=== PATIENT | male | born 1965 | race Caucasian/White ===

== ENCOUNTER 2016-08-24 16:27 | Emergency (ER) | payer SELFPAY ==
[2016-08-24 17:04] LABS: BASOPHILS 0.4 % (0.0-2.0); HEMOGLOBIN 15.1 g/dL (13.5-17.5); IMMATURE GRANULOCYTES 0.3 % (0-5); LYMPHOCYTES 33.9 % (15-50); MCH 31.2 pg (26.0-34.0); MCHC 33.6 g/dL (31.0-37.0); MONOCYTES 8.8 % (2-11); NEUTROPHILS 52.6 % (40-80); PLATELET COUNT 258 10x3/uL (130-400); RBC 4.84 10x6/uL (4.20-6.10); WBC 10.8 10x3/uL (4.8-10.8)
[2016-08-24 17:29] LABS: ALBUMIN 3.5 g/dL (3.4-5.0); ANION GAP 17.2 mmol/L (8-16); BILIRUBIN - TOTAL 0.24 mg/dL (0.2-1.3); CALCIUM 9.1 mg/dL (8.5-10.1); CARBON DIOXIDE 20.8 mmol/L (21.0-32.0); CREATININE - SERUM 1.1 mg/dL (0.6-1.3); PROTEIN - SERUM 7.4 g/dL (6.4-8.2)
== END 2016-08-24 17:53 | disposition left against medical advice (07) ==
LOC: D.ER 16:27
PROVIDERS: Family Medicine
DX: R10.9 Unspecified abdominal pain (principal)

== ENCOUNTER 2019-09-16 07:47 | Inpatient (IN) | payer OTHER ==
[~2019-09-16] VITALS: Ht 177.8 cm; Wt 115.9 kg
[2019-09-16 08:24] LABS: BASOPHILS 0.2 % (0-2); EOSINOPHILS 1.3 % (0-7); HEMATOCRIT 45.4 % (42.0-54.0); HEMOGLOBIN 14.8 g/dL (13.5-17.5); IMMATURE GRANULOCYTES 0.2 % (0-5); LYMPHOCYTES 18.4 % (15-50); MCH 30.7 pg (26.0-34.0); MCHC 32.6 g/dL (31.0-37.0); MCV 94.2 fL (80.0-100.0); MEAN PLATELET VOLUME 9.6 fL (7.4-10.4); MONOCYTES 7.7 % (2-11); NEUTROPHILS 72.2 % (40-80); PLATELET COUNT 252 10x3/uL (130-400); RBC 4.82 10x6/uL (4.20-6.10); RDW 13.4 % (11.5-14.5); WBC 12.6 10x3/uL (4.8-10.8)
[2019-09-16 08:41] LABS: CALC OSMOLALITY 282 mosm/kg (275-300); CALCIUM 8.2 mg/dL (8.5-10.1); CARBON DIOXIDE 23.5 mmol/L (21.0-32.0); CHLORIDE - SERUM 104 mmol/L (98-107); CREATININE - SERUM 0.9 mg/dL (0.6-1.3); GLUCOSE 104 mg/dL (74-106); POTASSIUM - SERUM 4.2 mmol/L (3.5-5.1); SODIUM 141 mmol/L (136-145); UREA NITROGEN 17 mg/dL (7-18); eGFR NON AFRICAN AMERICAN > 90 mL/min (90-120)
[2019-09-16 08:47] LABS: ALBUMIN 3.6 g/dL (3.4-5.0); ALKALINE PHOSPHATASE 79 U/L (30-120); ALT (SGPT) 21 U/L (10-68); PROTEIN - SERUM 7.6 g/dL (6.4-8.2)
--- NOTE | 2019-09-16 11:15 | NUR ---
FIRST ATTEMPT TO CALL REPORT, RN OFF THE FLOOR WILL RETURN CALL.
[2019-09-16] MEDS ORDERED: FLOMAX0.4 MG PO (12:40)
[2019-09-16] MEDS ORDERED: LISINOPRIL10 MG PO (12:40)
--- NOTE | 2019-09-16 12:54 | NUR ---
RECIVED FROM ER PER BED, TO ROOM 2108, ADMIT ASSESSMENT PER RN
[2019-09-16 13:00] VITALS: BP 141/76; BMI 36.6
[2019-09-16 13:32] VITALS: Ht 177.8 cm; Wt 115.9 kg
[2019-09-16] MEDS ORDERED: MELATONIN10 M1 PO (15:11)
[2019-09-16] MEDS ORDERED: ZOLOFT100 MG PO (15:11)
[2019-09-16 16:07] LABS: BILIRUBIN NEGATIVE (NEGATIVE); GLUCOSE NEGATIVE (NEGATIVE); KETONE NEGATIVE (NEGATIVE); NITRITE NEGATIVE (NEGATIVE); UROBILINOGEN NORMAL (NORMAL)
[2019-09-16 16:08] LABS: BACTERIA FEW /hpf (NEGATIVE); EPITHELIAL CELLS 0-5 /hpf (0-5); WHITE CELLS - URINE 0-5 /hpf (NEGATIVE)
[2019-09-16 16:30] LABS: UDS - AMPHET NEGATIVE QUAL (NEGATIVE); UDS - BARB NEGATIVE QUAL (NEGATIVE); UDS - BENZO NEGATIVE QUAL (NEGATIVE); UDS - COCAINE NEGATIVE QUAL (NEGATIVE); UDS - OPIATE POSITIVE QUAL (NEGATIVE); UDS - PCP NEGATIVE QUAL (NEGATIVE); UDS - THC POSITIVE QUAL (NEGATIVE)
[2019-09-16 16:51] VITALS: BP 146/81
--- NOTE | 2019-09-16 17:18 | NUR ---
WITHOUT CHANGES OR DISTRESS NOTED AT THIS TIME. DENIES NEEDS
[2019-09-16 20:00] VITALS: BP 150/83
--- NOTE | 2019-09-16 20:00 | NUR ---
ALERT RESTING IN BED REPORTS HAVING SOME PAIN TO RIGHT FACE,REDNESS AND EDEMA NOTED FROM EYE AREA DOWN TO NECK, DENIES DIFFICULTY SWALLOWING OR BREATHING AT THIS TIME, OPEN WOUND NOTED JUST BELOW RIGHT EYE WITH SLIGHT WEEPING NOTED, RIGHT EYES SWELLED SHUT, SEE ASSESSMENT, CALL LIGHT IN REACH
--- NOTE | 2019-09-16 22:15 | NUR ---
SPOKE WITH ELIJAH CR ABOUT WOUND BELOW EYE AND REQUESTING BACTROBAN AND DRESSING TO KEEP HIM FROM TOUCHING IT, ORDER RECIEVED, HS NOTIFIED FOR BACTOBAN
[2019-09-17] VITALS: BP 148/83
--- NOTE | 2019-09-17 01:30 | NUR ---
UNABLE TO GET BACTROBAN TONIGHT, COVERED WITH NONADHERENT DRESSING
[2019-09-17 04:00] VITALS: BP 147/89
[2019-09-17 04:34] LABS: BASOPHILS 0.3 % (0-2); EOSINOPHILS 3.2 % (0-7); HEMATOCRIT 44.2 % (42.0-54.0); HEMOGLOBIN 14.1 g/dL (13.5-17.5); IMMATURE GRANULOCYTES 0.2 % (0-5); LYMPHOCYTES 18.9 % (15-50); MCH 30.8 pg (26.0-34.0); MCHC 31.9 g/dL (31.0-37.0); MEAN PLATELET VOLUME 9.8 fL (7.4-10.4); NEUTROPHILS 66.4 % (40-80); PLATELET COUNT 235 10x3/uL (130-400); RBC 4.58 10x6/uL (4.20-6.10); RDW 13.7 % (11.5-14.5)
[2019-09-17 04:35] LABS: ALBUMIN 2.9 g/dL (3.4-5.0); ALKALINE PHOSPHATASE 71 U/L (30-120); ALT (SGPT) 20 U/L (10-68); BILIRUBIN - TOTAL 0.39 mg/dL (0.2-1.3); CALC OSMOLALITY 281 mosm/kg (275-300); CALCIUM 7.8 mg/dL (8.5-10.1); CARBON DIOXIDE 25.7 mmol/L (21.0-32.0); CHLORIDE - SERUM 104 mmol/L (98-107); GLUCOSE 108 mg/dL (74-106); POTASSIUM - SERUM 4.1 mmol/L (3.5-5.1); SODIUM 140 mmol/L (136-145); UREA NITROGEN 17 mg/dL (7-18); eGFR NON AFRICAN AMERICAN 82 mL/min (90-120)
[2019-09-17 04:38] LABS: MCV 96.5 fL (80.0-100.0); WBC 9.3 10x3/uL (4.8-10.8)
[2019-09-17 09:05] VITALS: BP 159/96
[2019-09-17 12:59] VITALS: BP 119/69
--- NOTE | 2019-09-17 15:10 | NUR ---
PT STATES THAT HE THINKS SWELLING MAY HAVE BEGAN AT WORK WHILE WEARING MASK AT WORK. PT STATES THAT HE MAY HAVE BEEN BITTEN BY SPIDER. NOTICED AT 0700 ALMOND SIZE BUBBLE UNDER RIGHT EYE AND PROGRESSED THROUGH THE DAY.
[2019-09-17 17:44] VITALS: BP 141/91
--- NOTE | 2019-09-17 19:10 | NUR ---
BEDSIDE REPORT RECEIVED, PT CARE ASSUMED. INTRODUCED SELF AND WROTE NAME ON BOARD. PT SITTING UP IN BED, WATCHING TV, AAOX4. C/O RIGHT SIDED FACE PAIN OF 8, ON A SCALE OF 0-10. DENIES ANY OTHER NEEDS AT THIS TIME. BED IN LOWEST POSITION, SR X1, CALL LIGHT WITHIN REACH. WILL CONTINUE TO MONITOR.
[2019-09-17 22:37] VITALS: BP 153/91
[2019-09-18 00:40] VITALS: BP 121/75
[2019-09-18 08:07] VITALS: BP 149/91
[2019-09-18 09:56] LABS: BASOPHILS 0.3 % (0-2); EOSINOPHILS 3.3 % (0-7); HEMATOCRIT 41.6 % (42.0-54.0); HEMOGLOBIN 13.6 g/dL (13.5-17.5); IMMATURE GRANULOCYTES 0.1 % (0-5); LYMPHOCYTES 18.4 % (15-50); MCH 31.1 pg (26.0-34.0); MCHC 32.7 g/dL (31.0-37.0); MEAN PLATELET VOLUME 9.2 fL (7.4-10.4); MONOCYTES 9.3 % (2-11); NEUTROPHILS 68.6 % (40-80); PLATELET COUNT 199 10x3/uL (130-400); RBC 4.38 10x6/uL (4.20-6.10); RDW 13.3 % (11.5-14.5); WBC 7.8 10x3/uL (4.8-10.8)
--- NOTE | 2019-09-18 10:03 | NUR ---
PT AWAKE AND OREINTED WHEN I ENTERED ROOM. C/O 7/10 PAIN ON HIS FACE, BUT NOT CURRENTLY WANTING PAIN MEDICATIONS. SPOKE TO HIS WHILE ADMINSITERING PAIN MEDS, SHE WANTS PT TO HAVE HIS ZOLOFT, PT REFUSES. SHE INSISTS HE GET PAIN MEDICATIONS, PT STATES HE'D LIKE SOME BUT ITS NOT IMMEDIATE. DR. ROMERO ARRIVED IN ROOM, SPOKE WITH . STATES THAT HE DOES NOT BELIEVE THERE SHOULD BE A DRESSING ON WOUND. WILL NOT REDRESS, DID CLEAN OFF. CL IN REACH, SRX2.
[2019-09-18 10:21] LABS: ALBUMIN 2.8 g/dL (3.4-5.0); BILIRUBIN - TOTAL 0.37 mg/dL (0.2-1.3); CALCIUM 7.7 mg/dL (8.5-10.1); CARBON DIOXIDE 25.7 mmol/L (21.0-32.0); CREATININE - SERUM 1.1 mg/dL (0.6-1.3); POTASSIUM - SERUM 3.7 mmol/L (3.5-5.1); PROTEIN - SERUM 6.3 g/dL (6.4-8.2)
[2019-09-18 11:32] VITALS: BP 183/110
[2019-09-18 14:48] VITALS: BP 135/85
[2019-09-18 20:00] VITALS: BP 158/95
[2019-09-19 00:01] VITALS: BP 142/82
[2019-09-19 07:30] VITALS: BP 152/94
--- NOTE | 2019-09-19 08:21 | NUR ---
CALLED TO CHECK ON PATIENT AND REQUESTING LABS BE DRAWN BEFORE PATIENT IS POSSIBLE DISCHARGED TODAY. CALLED PLACED TO TAYO DEWEY.
[2019-09-19 09:07] LABS: HEMATOCRIT 43.7 % (42.0-54.0); HEMOGLOBIN 14.2 g/dL (13.5-17.5); MCH 30.7 pg (26.0-34.0); MCHC 32.5 g/dL (31.0-37.0); MCV 94.6 fL (80.0-100.0); MEAN PLATELET VOLUME 8.9 fL (7.4-10.4); PLATELET COUNT 198 10x3/uL (130-400); RBC 4.62 10x6/uL (4.20-6.10); RDW 13.2 % (11.5-14.5); WBC 8.4 10x3/uL (4.8-10.8)
[2019-09-19 09:19] LABS: ANION GAP 9.2 mmol/L (8-16); CALCIUM 8.7 mg/dL (8.5-10.1); CARBON DIOXIDE 27.9 mmol/L (21.0-32.0); CREATININE - SERUM 1.1 mg/dL (0.6-1.3); POTASSIUM - SERUM 4.1 mmol/L (3.5-5.1)
--- NOTE | 2019-09-19 09:20 | NUR ---
AT BEDSIDE FOR AM ROUNDS. MEDICATED FOR PAIN AT THIS TIME. NO DISTRESS. CALL LIGHT WITHIN REACH.
[2019-09-19 09:37] LABS: EOSINOPHILS 7 % (0-7); LYMPHOCYTES 18 % (15-50); MONOCYTES 2 % (2-11); NEUTROPHILS 73 % (40-80)
[2019-09-19 09:38] LABS: PLATELET ESTIMATE NORMAL; TEAR DROP CELLS OCC
[2019-09-19] MEDS ORDERED: CLINDAMYCIN HC300 MG PO (09:57)
[2019-09-19] MEDS ORDERED: MUPIROCIN22 GM TOPICAL (09:58)
--- NOTE | 2019-09-19 09:58 | NUR ---
PATIENTS CALLED AGAIN AND WOULD NOT LEAVE A MESSAGE, RUDE TO THE NURSE TRYING TO TAKE A MESSAGE AND REQUESTED THIS PATCH SETTER RETURN HER CALL. WILL RETURN CALL SOON POSSIBLE.
--- NOTE | 2019-09-19 10:30 | NUR ---
CALLED PATIENTS BACK SHE WANTED TO KNOW WHAT ALL WAS ORDERED FOR THE DISCHARGE. DISCHARGE DISCUSSED WITH PATIENTS .
--- NOTE | 2019-09-19 10:51 | MORECARE ---
CASE MANAGEMENT DISCHARGE SUMMARY PATIENT: MACO PERALES UNIT: [id number] ADM DATE: 09/16/19 AGE: 54 : 63 SEX: M ROOM/BED: D.2108 AUTHOR: GARY RODRIGUEZ PHYSICIAN: REFERRING PHYSICIAN: LAINEY MACKENZIE MD DATE OF SERVICE: 09/19/19 Discharge Plan Patient Name: MACO PERALES [facility] [facility] 1965 Planned Disposition: Home or Self Care Anticipated Discharge Date: Discharge Date: Expected LOS: Initial Reviewer: [email or web address] Initial Review Date: 09/16/2019 Generated: 09/19/19 11:51 am Comments DCP- Discharge Planning Updated by [email or web address]: Anabell Manrique on 09/19/19 9:[address] Met with patient to assess discharge needs. Patient lives independently at home with his and son and plans to return there today. His is a FILM COMPOSER and will take care of any needs he might have. He states he is safe to dc and denies any needs from a CM standpoint DCPIA - Discharge Planning Initial Assessment Updated by [email or web address]: Anabell Manrique on 09/19/19 10:46 am * Is the patient Alert and Oriented? 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 N/A * Community resources currently utilized None * Additional services required to return to the preadmission environment? No * Can the patient safely return to the preadmission environment? Yes * Has this patient been hospitalized within the prior 30 days at any hospital? No Patient Name: MACO PERALES Page [phone] at 1051 All edits/amendments must be made on the electronic document DICTATION DATE: 09/19/19 1051 DE ICER ELEMENT WINDER: SOTERO 09/19/19 1051 RPT#: [id number] DC DATE: STATUS: ADM IN [facility] [address] [place] [address] END OF REPORT
--- NOTE | 2019-09-19 11:25 | NUR ---
20 GAUGE IV REMOVED FROM RIGHT HAND. CATHETER TIP INTACT. NO BLEEDING FROM SITE. TOLERATED IV REMOVAL WELL. PATIENT IS BEING DISCHARGED TO HOME. DISCHARGE INSTRUCTIONS PROVIDED. WAITING ON HIS TO ARRIVE FOR PICKUP.
--- NOTE | 2019-09-19 12:34 | NUR ---
PATIENT LEFT UNIT VIA WHEELCHAIR. PATIENT DISCHARGED TO HOME. PATIENT LEFT UNIT WITH ALL PERSONAL BELONGINGS. NO DISTRESS UPON LEAVING UNIT.
--- NOTE | 2019-09-19 16:21 | MORECARE ---
CASE MANAGEMENT DISCHARGE SUMMARY PATIENT: MACO PERALES UNIT: [id number] ADM DATE: 09/16/19 AGE: 54 : 63 SEX: M ROOM/BED: D.2107 AUTHOR: GARY RODRIGUEZ PHYSICIAN: REFERRING PHYSICIAN: LAINEY MACKENZIE MD DATE OF SERVICE: 09/19/19 Discharge Plan Patient Name: MACO PERALES Facility: [facility]:[place] : 1965 Planned Disposition: Home or Self Care Anticipated Discharge Date: Discharge Date: 09/19/2019 Expected LOS: 0 Initial Reviewer: [email or web address] Initial Review Date: 09/16/2019 Generated: 09/19/19 5:20 pm Comments DCP- Discharge Planning Updated by [email or web address]: Anabell Manrique on 09/19/19 9:[address] Met with patient to assess discharge needs. Patient lives independently at home with his and son and plans to return there today. 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 He states he is safe to dc and denies any needs from a CM standpoint DCPIA - Discharge Planning Initial Assessment Updated by [email or web address]: Anabell Manrique on 09/19/19 10:46 am * Is the patient Alert and Oriented? 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 N/A * Community resources currently utilized None * Additional services required to return to the preadmission environment? No * Can the patient safely return to the preadmission environment? Yes * Has this patient been hospitalized within the prior 30 days at any hospital? No Last DP export: 09/19/19 9:51 a Patient Name: MACO PERALES Page [phone] at 1621 All edits/amendments must be made on the electronic document DICTATION DATE: 09/19/19 1620 FIRE PREVENTION CHIEF: SOTERO 09/19/19 1620 RPT#: [id number] DC DATE:09/19/19 STATUS: DIS IN [facility] [address] [place] [address] END OF REPORT
== END 2019-09-19 12:34 | disposition home or self-care (01) | DRG 603 ==
LOC: D.ER 07:47 → D.M2 10:44
PROVIDERS: Family Medicine; ADMIT Internal Medicine Nephrology; ATTEND Internal Medicine Nephrology
DX: L03.213 Periorbital cellulitis (principal); I10 Essential (primary) hypertension; G47.33 Obstructive sleep apnea (adult) (pediatric); Z87.891 Personal history of nicotine dependence

== ENCOUNTER 2019-09-23 22:17 | Inpatient (IN) | payer OTHER ==
[~2019-09-23] VITALS: Ht 177.8 cm; Wt 116.6 kg
[~2019-09-23 22:17] MED LIST: CLINDAMYCIN HC300 MG PO; FLOMAX0.4 MG PO; LISINOPRIL10 MG PO; MELATONIN10 M1 PO; MUPIROCIN22 GM TOPICAL; ZOLOFT100 MG PO
[2019-09-23 22:57] LABS: BASOPHILS 0.2 % (0-2); HEMOGLOBIN 14.9 g/dL (13.5-17.5); IMMATURE GRANULOCYTES 0.4 % (0-5); LYMPHOCYTES 23.3 % (15-50); MCH 30.7 pg (26.0-34.0); MCHC 32.4 g/dL (31.0-37.0); MCV 94.7 fL (80.0-100.0); MEAN PLATELET VOLUME 9.3 fL (7.4-10.4); MONOCYTES 10.3 % (2-11); NEUTROPHILS 62.8 % (40-80); RBC 4.86 10x6/uL (4.20-6.10); RDW 13.2 % (11.5-14.5); WBC 12.7 10x3/uL (4.8-10.8)
[2019-09-23 22:58] LABS: PLATELET COUNT 273 10x3/uL (130-400)
[2019-09-23 23:10] LABS: ANION GAP 16.3 mmol/L (8-16); CALCIUM 8.8 mg/dL (8.5-10.1); CARBON DIOXIDE 24.5 mmol/L (21.0-32.0); CREATININE - SERUM 1.1 mg/dL (0.6-1.3); POTASSIUM - SERUM 3.8 mmol/L (3.5-5.1)
[2019-09-23 23:16] LABS: ALBUMIN 3.1 g/dL (3.4-5.0); BILIRUBIN - TOTAL 0.35 mg/dL (0.2-1.3); PROTEIN - SERUM 7.8 g/dL (6.4-8.2)
--- NOTE | 2019-09-24 02:03 | NUR ---
PT ARRIVED TO THE FLOOR. ALERT AND ORIENTED. NO SIGNS OF DISTRESS. BREATHING EVEN AND UNLABORED. PT STATES NO PROBLEMS AT THIS TIME. DRESSING RT EYE CLEAN DRY AND INTACT. FACIAL SWELLING PRESENT. LUNG SOUNDS CLEAR. BOWEL SOUNDS ACTIVE. IV SITE RT AC DRESSING CLEAN DRY AND INTACT. NO SIGNS OF INFECTION OR INFULTRATION. IV ABX GOING AT THIS TIME. SKIN CLEAN DRY AND INTACT. NO LOWER LEG SWELLING PRESENT. WILL CONTINUE PLAN OF CARE. CALL LIGHT IN REACH. BED LOWERED AND LOCKED. BED RAILS UPX1.
[2019-09-24 02:52] VITALS: BP 161/87; BMI 51.0
[2019-09-24 04:00] VITALS: BP 161/87
[2019-09-24 05:34] LABS: ERYTHROCYTE SEDIMENTATION RATE 28 mm/hr (0-20)
[2019-09-24 07:59] VITALS: BP 140/90
--- NOTE | 2019-09-24 08:01 | NUR ---
PT LYING ON LEFT SIDE, STATES HE FEELS BETTER AND IS NOT HURTING MUCH. LAST PRN PAIN MEDICATION ADMINISTERED AT 0530. NO S/SX OF DISTRESS, IV IN RT AC NS AT 125, CDI, NO NEEDS VOICED AT THIS TIME, CL IN REACH ASSUME PT CARE
[2019-09-24 08:09] LABS: BASOPHILS 0.4 % (0-2); EOSINOPHILS 2.2 % (0-7); HEMATOCRIT 44.5 % (42.0-54.0); HEMOGLOBIN 14.1 g/dL (13.5-17.5); IMMATURE GRANULOCYTES 0.5 % (0-5); LYMPHOCYTES 21.8 % (15-50); MCH 30.1 pg (26.0-34.0); MCHC 31.7 g/dL (31.0-37.0); MCV 94.9 fL (80.0-100.0); MEAN PLATELET VOLUME 9.4 fL (7.4-10.4); MONOCYTES 10.9 % (2-11); NEUTROPHILS 64.2 % (40-80); PLATELET COUNT 268 10x3/uL (130-400); RBC 4.69 10x6/uL (4.20-6.10); RDW 13.3 % (11.5-14.5); WBC 11.9 10x3/uL (4.8-10.8)
--- NOTE | 2019-09-24 09:40 | NUR ---
I have reviewed this patient and I concur with the Shift Assessment completed by the Licensed Practical Nurse today this shift.
[2019-09-24 10:06] LABS: MAGNESIUM - SERUM 1.8 mg/dL (1.8-2.4); PHOSPHOROUS 3.5 mg/dL (2.5-4.9)
[2019-09-24 10:07] LABS: CREATININE - SERUM 1.2 mg/dL (0.6-1.3); POTASSIUM - SERUM 4.1 mmol/L (3.5-5.1)
[2019-09-24 10:08] LABS: ANION GAP 15.1 mmol/L (8-16); CALCIUM 8.9 mg/dL (8.5-10.1)
[2019-09-24 10:09] LABS: BILIRUBIN - TOTAL 0.23 mg/dL (0.2-1.3)
[2019-09-24 10:10] LABS: ALBUMIN 3.2 g/dL (3.4-5.0); PROTEIN - SERUM 7.9 g/dL (6.4-8.2)
--- NOTE | 2019-09-24 10:36 | NUR ---
PT C/O PAIN AT A 6 IN EYE, ADMINISTERED PRN PAIN MEDICATION WELL SCHEDULED MEDS, NO OTHER NEEDS VOICED, CONTINUE WITH PLAN OF CARE
[2019-09-24 12:02] VITALS: BP 149/95
[2019-09-24 13:19] VITALS: BMI 50.9
[2019-09-24 15:39] VITALS: BP 149/82
--- NOTE | 2019-09-24 18:43 | NUR ---
PT SPOUSE CALLED IN REGARDS TO UPDATE ON PT. WENT OVER LABWORK WELL PLAN OF CAREWITH IV ABX AND OINTMENT FOR WOUND, PT SPOUSE INQUIRED ON DRESSING CHANGE. ADVISED I AM STILL WAITING FOR PHARMACY TO BRING TO ME, CALLED PHARMACY AND SPOKE TO BARNEY WHO STATED SHE WILL SEND IT UP. PT HAD SOME OINTMENT IN ROOM, APPLIED TO WOUND AND CHANGED BANDAID. NO OTHER NEEDS VOICED, CONTINUE WITH PLAN OF CARE
[2019-09-24 20:00] VITALS: BP 121/82
--- NOTE | 2019-09-24 21:00 | NUR ---
PT C/O RIGHT EYE PAIN 12/02. GAVE MORPHINE 4 MG IV PUSH. APPLIED BACTRIBAN TO WOUND UNDER RIGHT EYE AND CHANGED DRESSING. COMPLETE ASSESSMENT PER FLOW-SHEET. NO OTHER NEEDS. WILL REASSESS AND CONTINUE TO MONITOR.
[2019-09-24 22:18] VITALS: Ht 177.8 cm; Wt 116.6 kg
[2019-09-25 04:00] VITALS: BP 141/86
[2019-09-25 05:53] LABS: BASOPHILS 0.3 % (0-2); EOSINOPHILS 3.9 % (0-7); HEMATOCRIT 39.7 % (42.0-54.0); HEMOGLOBIN 12.6 g/dL (13.5-17.5); IMMATURE GRANULOCYTES 0.2 % (0-5); LYMPHOCYTES 21.3 % (15-50); MCH 30.4 pg (26.0-34.0); MCHC 31.7 g/dL (31.0-37.0); MCV 95.9 fL (80.0-100.0); MEAN PLATELET VOLUME 9.5 fL (7.4-10.4); MONOCYTES 11.3 % (2-11); PLATELET COUNT 247 10x3/uL (130-400); RBC 4.14 10x6/uL (4.20-6.10); RDW 13.3 % (11.5-14.5); WBC 10.2 10x3/uL (4.8-10.8)
[2019-09-25 06:12] LABS: CALC OSMOLALITY 281 mosm/kg (275-300); CALCIUM 8.4 mg/dL (8.5-10.1); CARBON DIOXIDE 26.5 mmol/L (21.0-32.0); CHLORIDE - SERUM 107 mmol/L (98-107); GLUCOSE 135 mg/dL (74-106); MAGNESIUM - SERUM 1.9 mg/dL (1.8-2.4); PHOSPHOROUS 3.4 mg/dL (2.5-4.9); POTASSIUM - SERUM 3.9 mmol/L (3.5-5.1); SODIUM 139 mmol/L (136-145); UREA NITROGEN 18 mg/dL (7-18); eGFR NON AFRICAN AMERICAN 82 mL/min (90-120)
[2019-09-25 08:00] VITALS: BP 146/89
[2019-09-25 12:05] VITALS: BP 159/95
[2019-09-25 16:00] VITALS: BP 144/83
--- NOTE | 2019-09-25 17:18 | NUR ---
I have reviewed this patient and I concur with the Shift Assessment completed by the Licensed Practical Nurse today this shift.
[2019-09-25 19:43] VITALS: BP 155/89
--- NOTE | 2019-09-25 20:15 | NUR ---
CORNER OF RIGHT EYE SCLERA RED AND SWOLLEN. PT AND SPOUSE ANXIOUS ABOUT CHANGE. DR GIBSON ON FLOOR, ASKED HIM TO COME ASSESS PT'S EYE. DR. GIBSON ASSESSED EYE AND SPOKE WITH PT AND SPOUSE VIA SPEAKER PHONE IN DEPTH AND ANSWERED QUESTIONS SPOUSE HAD. PT MUCH RELIEVED AFTER TALKING TO DOCTOR. NO OTHER NEEDS. WILL CONTINUE TO MONITOR.
[2019-09-26] VITALS (7 sets, daily range): BP systolic 120–168; BP diastolic 80–103
--- NOTE | 2019-09-26 02:00 | NUR ---
PATIENT RESTING IN BED WITH EYES CLOSED. NO S/S OF ACUTE DISTRESS. NO C/O AT THIS TIME. PATIENT HAS RIGHT AC, NORMAL SALINE @ 125 ML/HR. IV IS PATENT WITHOUT REDNESS, SWELLING, OR TENDERNESS. PATIENT RIGHT PERIORBITAL AND CHEEK ARE RED AND SWOLLEN. PATIENT'S RIGHT EYE IS ALSO RED. PATIENT IS UP ADLIB. CALL LIGHT WITHIN REACH. WILL CONTINUE TO MONITOR.
--- NOTE | 2019-09-26 04:00 | NUR ---
PATIENT'S BLOOD PRESSURE IS HIGH AT 168/103. PATIENT STATES THAT HE IS IN SOME PAIN. 4 MG MORPHINE ADMINISTERED. WILL CONTINUE TO MONITOR.
--- NOTE | 2019-09-26 05:52 | NUR ---
PATIENT'S BLOOD PRESSURE IS DOWN TO 138/93. WILL CONTINUE TO MONITOR.
[2019-09-26 06:52] LABS: BASOPHILS 0.2 % (0-2); EOSINOPHILS 4.5 % (0-7); HEMATOCRIT 40.2 % (42.0-54.0); HEMOGLOBIN 12.9 g/dL (13.5-17.5); IMMATURE GRANULOCYTES 0.3 % (0-5); LYMPHOCYTES 24.9 % (15-50); MCH 30.2 pg (26.0-34.0); MCHC 32.1 g/dL (31.0-37.0); MCV 94.1 fL (80.0-100.0); MEAN PLATELET VOLUME 9.3 fL (7.4-10.4); MONOCYTES 9.2 % (2-11); NEUTROPHILS 60.9 % (40-80); PLATELET COUNT 254 10x3/uL (130-400); RBC 4.27 10x6/uL (4.20-6.10); RDW 13.1 % (11.5-14.5); WBC 9.2 10x3/uL (4.8-10.8)
[2019-09-26 07:28] LABS: CALC OSMOLALITY 279 mosm/kg (275-300); CALCIUM 8.7 mg/dL (8.5-10.1); CARBON DIOXIDE 26.3 mmol/L (21.0-32.0); CHLORIDE - SERUM 105 mmol/L (98-107); CREATININE - SERUM 0.9 mg/dL (0.6-1.3); GLUCOSE 114 mg/dL (74-106); PHOSPHOROUS 3.2 mg/dL (2.5-4.9); SODIUM 139 mmol/L (136-145); UREA NITROGEN 14 mg/dL (7-18); eGFR NON AFRICAN AMERICAN > 90 mL/min (90-120)
--- NOTE | 2019-09-26 07:38 | NUR ---
PT UP TO BATHROOM, ALERT AND ORIENTED. IV LOCATED TO RIGHT AC CURRENTLY RUNNING NS @ 125ML. NO CURRENT S/S OF DISTRESS, DENIES NEEDS AT THIS TIME, WILL CONT TO MONITOR.
--- NOTE | 2019-09-26 09:36 | NUR ---
DRESSING CHANGED AND OINTMENT APPLIED TO UNDER RIGHT EYE.
--- NOTE | 2019-09-26 21:26 | NUR ---
PT RATES PAIN 6/10. GAVE MORPHINE 4 MG IV PUSH AND SCHEDULED MEDS. APPLIED LUBRICANT TO LATERAL CORNER IN RIGHT EYE. REMOVED BANDAGE AND APPLIED BACTROBAN TO NECROTIC AREA UNDER RIGHT EYE AND NEW BANDAGE. REMINDED PT TO BE NPO AFTER MIDNIGHT PER DR. GIBSON. NO OTHER NEEDS. WILL REASSESS AND CONTINUE TO MONITOR. BED LOW CALL LIGHT IN REACH.
[2019-09-27] VITALS: BP 143/88
--- NOTE | 2019-09-27 01:00 | NUR ---
ELIJAH CROCKETTN NOTIFIED OF PTs WISH FOR DOCTOR/CHIEF RELAY TESTER TO CALL . ELIJAH STATED HE WILL HAVE DR MACKENZIE SPEAK WITH FAMILY TODAY.
[2019-09-27 04:00] VITALS: BP 151/88
[2019-09-27 05:47] LABS: BASOPHILS 0.2 % (0-2); EOSINOPHILS 4.5 % (0-7); HEMATOCRIT 38.9 % (42.0-54.0); HEMOGLOBIN 12.6 g/dL (13.5-17.5); IMMATURE GRANULOCYTES 0.4 % (0-5); MCH 30.5 pg (26.0-34.0); MCHC 32.4 g/dL (31.0-37.0); MCV 94.2 fL (80.0-100.0); MEAN PLATELET VOLUME 9.3 fL (7.4-10.4); MONOCYTES 10.1 % (2-11); NEUTROPHILS 57.8 % (40-80); PLATELET COUNT 269 10x3/uL (130-400); RBC 4.13 10x6/uL (4.20-6.10); WBC 8.9 10x3/uL (4.8-10.8)
--- NOTE | 2019-09-27 05:48 | NUR ---
PT SHOWER WITH HIBICLENS AND BED CHANGED. BANDAGE ON UNDER EYE BECAME WET. PT C/O WOUND STINGING AND PAIN 11/02. GAVE MORPHINE 4 MG IV PUSH. PERFORMED 0900 DRESSING CHANGE EARLY PER PT REQUEST. NO OTHER NEEDS. PT STATES STINGING AND DISCOMFORT IS RELIEVED. NO OTHER NEEDS. WILL REASSESS AND CONTINUE TO MONITOR.
[2019-09-27 05:53] LABS: CALC OSMOLALITY 273 mosm/kg (275-300); CALCIUM 8.3 mg/dL (8.5-10.1); CARBON DIOXIDE 27.4 mmol/L (21.0-32.0); CHLORIDE - SERUM 104 mmol/L (98-107); GLUCOSE 94 mg/dL (74-106); PHOSPHOROUS 3.4 mg/dL (2.5-4.9); SODIUM 137 mmol/L (136-145); UREA NITROGEN 13 mg/dL (7-18); eGFR NON AFRICAN AMERICAN 82 mL/min (90-120)
[2019-09-27 08:02] VITALS: BP 135/86
--- NOTE | 2019-09-27 08:16 | NUR ---
PT LYING IN BED ON LEFT SIDE, HAS BEEN NPO IN CASE DR FERNANDEZ DOES DEBRIDEMENT, IV IN RT AC NS AT 125. SITE IS CDI, WILL ADMINISTER MORNING MEDS. CONTINUE WITH PLAN OF CARE
--- NOTE | 2019-09-27 08:42 | NUR ---
PT C/O NO BM SINCE SAT AND WORRIED ABOUT OBSTRUCTION, REQUESTED TO HAVE MAG CITRATE, PT STATED MIRALAX AND COLACE NOT HELPING, WILL ADD MAG CITRATE WELL, NO OTHE NEEDS AT THIS TIME, CONTINUE WITH PLAN OF CARE
[2019-09-27 11:45] VITALS: BP 138/82
--- NOTE | 2019-09-27 14:36 | NUR ---
APPLIED BACTROBAN TO PT WOUND UNDER EYE, HAD SOME SCABS COME OFF WHILE APPLYING OINTMENT AND MENTIONED TO PT THIS IS A GOOD SIGN IT ALLOWS NEW SKIN TO GROW. NO PAIN MEDICATION NEEDED. CILL CONTINUE WITH PLAN OF CARE
[2019-09-27 16:49] VITALS: BP 148/82
--- NOTE | 2019-09-27 18:34 | NUR ---
I have reviewed this patient and I concur with the Shift Assessment completed by the Licensed Practical Nurse today this shift.
--- NOTE | 2019-09-27 19:20 | NUR ---
SUPINE IN BED, A&O X 4. AMBULATES AD CHRISTIANNE. RIGHTS EYE SCLERA IS REDDENED AND SCABBING NOTED BELOW THIS EYE. PT STATES PAIN IS MINIMAL. SO SCABBING IS COMING OFF, PINK SKIN UNDERNEATH. REQUESTS THE DOCTOR CALL HIS WHO IS AN SEASONAL SALES ASSOCIATE TO UPDATE HER AND ANSWER QUESTIONS. WILL RELAY THIS. PT DENIES NEEDS AT THIS TIME, WILL CONTINUE TO MONITOR.
[2019-09-27 21:50] VITALS: BP 151/88
[2019-09-28 04:56] LABS: BASOPHILS 0.5 % (0-2); EOSINOPHILS 5.3 % (0-7); HEMATOCRIT 38.6 % (42.0-54.0); HEMOGLOBIN 12.1 g/dL (13.5-17.5); IMMATURE GRANULOCYTES 0.2 % (0-5); MCHC 31.3 g/dL (31.0-37.0); MCV 95.5 fL (80.0-100.0); MEAN PLATELET VOLUME 9.2 fL (7.4-10.4); MONOCYTES 8.3 % (2-11); NEUTROPHILS 57.7 % (40-80); PLATELET COUNT 258 10x3/uL (130-400); RBC 4.04 10x6/uL (4.20-6.10); WBC 9.2 10x3/uL (4.8-10.8)
[2019-09-28 05:12] LABS: ANION GAP 7.9 mmol/L (8-16); CALCIUM 8.2 mg/dL (8.5-10.1); CARBON DIOXIDE 25.8 mmol/L (21.0-32.0); CREATININE - SERUM 1.2 mg/dL (0.6-1.3); PHOSPHOROUS 3.9 mg/dL (2.5-4.9); POTASSIUM - SERUM 3.7 mmol/L (3.5-5.1)
[2019-09-28 05:34] VITALS: BP 145/85
[2019-09-28 09:07] VITALS: BP 167/89
[2019-09-28] MEDS ORDERED: VANCOMYCIN 1.5 GM/NS IV (12:35)
[2019-09-28 12:45] VITALS: BP 138/92
[2019-09-28 17:47] VITALS: BP 137/78
--- NOTE | 2019-09-28 18:45 | NUR ---
I have reviewed this patient and I concur with the Shift Assessment completed by the Licensed Practical Nurse today this shift.
[2019-09-28 21:42] VITALS: BP 173/96
[2019-09-29 00:23] VITALS: BP 147/87
[2019-09-29 05:27] LABS: BASOPHILS 0.4 % (0-2); EOSINOPHILS 5.1 % (0-7); HEMATOCRIT 39.7 % (42.0-54.0); HEMOGLOBIN 12.5 g/dL (13.5-17.5); IMMATURE GRANULOCYTES 0.3 % (0-5); LYMPHOCYTES 27.4 % (15-50); MCHC 31.5 g/dL (31.0-37.0); MCV 95.4 fL (80.0-100.0); MEAN PLATELET VOLUME 9.6 fL (7.4-10.4); MONOCYTES 7.7 % (2-11); NEUTROPHILS 59.1 % (40-80); PLATELET COUNT 273 10x3/uL (130-400); RBC 4.16 10x6/uL (4.20-6.10); RDW 13.1 % (11.5-14.5); WBC 10.6 10x3/uL (4.8-10.8)
[2019-09-29 05:53] LABS: ANION GAP 12.2 mmol/L (8-16); CALCIUM 8.4 mg/dL (8.5-10.1); CARBON DIOXIDE 26.8 mmol/L (21.0-32.0); CREATININE - SERUM 1.1 mg/dL (0.6-1.3); PHOSPHOROUS 3.6 mg/dL (2.5-4.9)
[2019-09-29 06:04] VITALS: BP 157/92
--- NOTE | 2019-09-29 07:15 | NUR ---
REC'D IN BED RESTING AT THIS TIME EASILY AROUSED WHEN NAME IS CALLED. RESP EVEN AND UNLABORED WITH NO DISTRESS NOTED. CAN EXPRESS NEEDS AND WANTS. C/L IN REACH AT BEDSIDE.
--- NOTE | 2019-09-29 07:31 | NUR ---
I have reviewed this patient and I concur with the Shift Assessment completed by the Licensed Practical Nurse today this shift.
[2019-09-29 09:47] VITALS: BP 148/97
[2019-09-29 13:17] VITALS: BP 167/91
--- NOTE | 2019-09-29 13:56 | MORECARE ---
CASE MANAGEMENT DISCHARGE SUMMARY PATIENT: MACO PERALES UNIT: [id number] ADM DATE: 09/24/19 AGE: 54 : 63 SEX: M ROOM/BED: D.2216 AUTHOR: GARY RODRIGUEZ PHYSICIAN: REFERRING PHYSICIAN: AURORA SEVILLA MD DATE OF SERVICE: 09/29/19 Discharge Plan Patient Name: MACO PERALES [facility] [facility] 1965 Planned Disposition: Home with Home Health Anticipated Discharge Date: Discharge Date: Expected LOS: Initial Reviewer: [email or web address] Initial Review Date: 09/24/2019 Generated: 09/29/19 2:56 pm Comments DCP- Discharge Planning Updated by [email or web address]: Anabell Manrique on 09/29/19 12:[address] AVA PFEIFFER RN HAS STARTED THE TRANSFER PROCESS TO GET TO A HOSPITAL WITH ID DCP- Discharge Planning Updated by [id number]: Anabell Manrique on 09/29/19 7:[address] IS CONCERNED ABOUT HIS WBC INCREASING AND WOULD LIKE TO HAVE HIM TRANSFERED TO A PLACE WITH ID, PLASTICS AND OPTHALMOLOGY. WILL SPEAK WITH MD ABOUT REQUEST DCP- Discharge Planning Updated by [email or web address]: Anabell Manrique on 09/28/19 4:[address] SPOKE WITH MAKENNA WITH [facility] ABOUT IV ABX. CLINICALS FAXED TO HER AT [phone] External Providers External Provider: OTHER-OTHER Next Contact Date: Service Request Date: Service Type: Resolution: Reviewer: Comments: Patient Name: MACO PERALES Page 89251 at 1356 All edits/amendments must be made on the electronic document DICTATION DATE: 09/29/19 1356 SAFETY DEPOSIT SUPERVISOR: SOTERO 09/29/19 1356 RPT#: [id number] DC DATE: STATUS: ADM IN [facility] [address] [place] [address] END OF REPORT
--- NOTE | 2019-09-29 14:04 | MORECARE ---
CASE MANAGEMENT DISCHARGE SUMMARY PATIENT: MACO PERALES UNIT: [id number] ADM DATE: 09/24/19 AGE: 54 : 63 SEX: M ROOM/BED: D.2216 AUTHOR: JENNIFER,DOC PHYSICIAN: REFERRING PHYSICIAN: AURORA SEVILLA MD DATE OF SERVICE: 09/29/19 Discharge Plan Patient Name: MACO PERALES Facility: [facility]:[place] : 1965 Planned Disposition: Home with Home Health Anticipated Discharge Date: Discharge Date: Expected LOS: Initial Reviewer: [email or web address] Initial Review Date: 09/24/2019 Generated: 09/29/19 3:03 pm Comments DCP- Discharge Planning Updated by [email or web address]: Anabell Manrique on 09/29/19 12:[address] AVA PFEIFFER RN HAS STARTED THE TRANSFER PROCESS TO GET TO A HOSPITAL WITH ID DCP- Discharge Planning Updated by [email or web address]: Anabell Manrique on 09/29/19 7:[address] IS CONCERNED ABOUT HIS WBC INCREASING AND WOULD LIKE TO HAVE HIM TRANSFERED TO A PLACE WITH ID, PLASTICS AND OPTHALMOLOGY. WILL SPEAK WITH MD ABOUT REQUEST DCP- Discharge Planning Updated by [email or web address]: Anabell Manrique on 09/28/19 4:[address] SPOKE WITH MAKENNA WITH [facility] ABOUT IV ABX. CLINICALS FAXED TO HER AT [phone] DCPIA - Discharge Planning Initial Assessment Updated by [email or web address]: Anabell Manrique on 09/29/19 1:57 pm * Is the patient Alert and Oriented? 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 Yes * Community resources currently utilized None * Additional services required to return to the preadmission environment? Yes * Can the patient safely return to the preadmission environment? Yes * Has this patient been hospitalized within the prior 30 days at any hospital? Yes Last DP export: 09/29/19 12:56 pm Patient Name: MACO PERALES Page [phone] at 1404 All edits/amendments must be made on the electronic document DICTATION DATE: 09/29/191402 PROPERTY APPRAISER: SOTERO 09/29/191402 RPT#: [id number] DC DATE: STATUS: ADM IN [facility] [address] [place] [address] END OF REPORT
[2019-09-29] MEDS ORDERED: AUGMENTIN 875-11 TAB PO (14:10)
--- NOTE | 2019-09-29 14:12 | MORECARE ---
CASE MANAGEMENT DISCHARGE SUMMARY PATIENT: MACO PERALES UNIT: [id number] ADM DATE: 09/24/19 AGE: 54 : 63 SEX: M ROOM/BED: D.2216 AUTHOR: JENNIFER,DOC PHYSICIAN: REFERRING PHYSICIAN: AURORA SEVILLA MD DATE OF SERVICE: 09/29/19 Discharge Plan Patient Name: MACO PERALES Facility: [facility]:[place] : 1965 Planned Disposition: Home with Home Health Anticipated Discharge Date: Discharge Date: Expected LOS: Initial Reviewer: [email or web address] Initial Review Date: 09/24/2019 Generated: 09/29/19 3:11 pm Comments DCP- Discharge Planning Updated by [id number]: Anabell Manrique on 09/29/19 1:[address] Patient Name: MACO PERALES Admission Status: ER Accout number: [id number] Admission Date: 09-24-2019 : 1965 Admission Diagnosis:PERIORBITAL CELLULITIS Attending: AURORA BYRNE Current LOS: 5 Anticipated DC Date: Planned Disposition: Home with Home Health Primary Insurance: [employer] [facility] Discharge Planning Comments: Patient lives at home with his spouse who is a CLOTH DYER. Patient was just discharged from our hospital for the same thing. The initial discharge plan was to go home with home health and IV abx. This is a workman's comp case and I was awaiting to hear back from Makenna (workman's comp CM) to let me know where I can get abx set up, This morning the called very tearful about her that his WBC was rising being currently on IV ABX again and she is afraid if he is sent home that he will be right back. She is asking if we have ID. We do not have ID and the would like him transferred to a higher level of care and the services that he needs. We have stated this process and I have updated the on this. CM will continue to follow and will assist as needed with dc plans/needs. Service Desk Manager: Anabell Manrique DCP- Discharge Planning Updated by [email or web address]: Anabell Manrique on 09/29/19 12:[address] AVA PFEIFFER RN HAS STARTED THE TRANSFER PROCESS TO GET TO A HOSPITAL WITH ID DCP- Discharge Planning Updated by [email or web address]: Anabell Manrique on 09/29/19 7:[address] IS CONCERNED ABOUT HIS WBC INCREASING AND WOULD LIKE TO HAVE HIM TRANSFERED TO A PLACE WITH ID, PLASTICS AND OPTHALMOLOGY. WILL SPEAK WITH MD ABOUT REQUEST DCP- Discharge Planning Updated by [email or web address]: Anabell Manrique on 09/28/19 4:[address] SPOKE WITH MAKENNA WITH [employer] ABOUT IV ABX. CLINICALS FAXED TO HER AT [phone] DCPIA - Discharge Planning Initial Assessment Updated by [email or web address]: Anabell Manrique on 09/29/19 1:57 pm * Is the patient Alert and Oriented? Yes * PCP PATIENT SERVICE TECHNICIAN PST * Pharmacy [facility] ON [address] * Preadmission Environment Home with Family * ADLs Independent * Equipment None * List name and contact numbers for known caregivers / representatives who currently or will assist patient after discharge: AVA () [phone] * Verbal permission to speak to the caregivers and representatives has been obtained from the patient. Yes * Community resources currently utilized None * Additional services required to return to the preadmission environment? Yes * Can the patient safely return to the preadmission environment? Yes * Has this patient been hospitalized within the prior 30 days at any hospital? Yes Last DP export: 09/29/19 1:04 pm Patient Name: MACO PERALES Page [phone] at 1412 All edits/amendments must be made on the electronic document DICTATION DATE: 09/29/191411 POST HOLE DIGGER: SOTERO 09/29/19 141 RPT#: [id number] DC DATE: STATUS: ADM IN [facility] [address] [place] [address] END OF REPORT
[2019-09-29] MEDS ORDERED: MONODOX100 MG PO (14:48)
--- NOTE | 2019-09-29 14:57 | MORECARE ---
CASE MANAGEMENT DISCHARGE SUMMARY PATIENT: MACO PERALES UNIT: [id number] ADM DATE: 09/24/19 AGE: 54 : 63 SEX: M ROOM/BED: D.2216 AUTHOR: JENNIFER,DOC PHYSICIAN: REFERRING PHYSICIAN: AURORA SEVILLA MD DATE OF SERVICE: 09/29/19 Discharge Plan Patient Name: MACO PERALES Facility: [facility]:[place] : 1965 Planned Disposition: Home with Home Health Anticipated Discharge Date: Discharge Date: Expected LOS: Initial Reviewer: [email or web address] Initial Review Date: 09/24/2019 Generated: 09/29/19 3:56 pm Comments DCP- Discharge Planning Updated by [email or web address]: Anabell Manrique on 09/29/19 1:[address] MACKENZIE CALLED AND STATED THAT HE HAS MADE HIM AN APPOINTMENT WITH A DR BECK WHO IS A OCULOFACIAL PLASTIC SURGEON. HIS APPOINTMENT IS FOR FridaySeptember @ 12.:00. I CALLED AND VERIFIED THIS WITH HIS OFFICE AND WILL FAX CLINICALS TO THEM I HAVE ALSO REQUESTED A FACIAL CT TO BE PLACED ON A DISC TO TAKE WITH HIM. HE WILL BE GOING TO THE OFFICE [phone] DR MACKENZIE PERSONALLY CALLED HIS AVA AND SPOKE WITH HER AND GAVE ALL OF THE ABOVE INFORMATION DCP- Discharge Planning Updated by [email or web address]: Anabell Manrique on 09/29/19 1:[address] Patient Name: MACO PERALES Admission Status: ER Accout number: [id number] Admission Date: 09-24-2019 : 1965 Admission Diagnosis:PERIORBITAL CELLULITIS Attending: AURORA BYRNE Current LOS: 5 Anticipated DC Date: Planned Disposition: Home with Home Health Primary Insurance: [employer] [facility] Discharge Planning Comments: Patient lives at home with his spouse who is a ELECTRIC DRILL OPERATOR. Patient was just discharged from our hospital for the same thing. The initial discharge plan was to go home with home health and IV abx. This is a workman's comp case and I was awaiting to hear back from Makenna (workman's comp CM) to let me know where I can get abx set up, This morning the called very tearful about her that his WBC was rising being currently on IV ABX again and she is afraid if he is sent home that he will be right back. She is asking if we have ID. We do not have ID and the would like him transferred to a higher level of care and the services that he needs. We have stated this process and I have updated the on this. CM will continue to follow and will assist as needed with dc plans/needs. Business Risk Analyst: Anabell Manrique DCP- Discharge Planning Updated by [email or web address]: Anabell Manrique on 09/29/19 12:[address] AVA PFEIFFER RN HAS STARTED THE TRANSFER PROCESS TO GET TO A HOSPITAL WITH ID DCP- Discharge Planning Updated by [email or web address]: Anabell Manrique on 09/29/19 7:[address] IS CONCERNED ABOUT HIS WBC INCREASING AND WOULD LIKE TO HAVE HIM TRANSFERED TO A PLACE WITH ID, PLASTICS AND OPTHALMOLOGY. WILL SPEAK WITH MD ABOUT REQUEST DCP- Discharge Planning Updated by [email or web address]: Anabell Manrique on 09/28/19 4:[address] SPOKE WITH MAKENNA WITH MUNA JC ABOUT IV ABX. CLINICALS FAXED TO HER AT [phone] DCPIA - Discharge Planning Initial Assessment Updated by [email or web address]: Anabell Manrique on 09/29/19 1:57 pm * Is the patient Alert and Oriented? Yes * PCP STANDPIPE TENDER * Pharmacy [facility] [address] * Preadmission Environment Home with Family * ADLs Independent * Equipment None * List name and contact numbers for known caregivers / representatives who currently or will assist patient after discharge: AVA () [phone] * Verbal permission to speak to the caregivers and representatives has been obtained from the patient. Yes * Community resources currently utilized None * Additional services required to return to the preadmission environment? Yes * Can the patient safely return to the preadmission environment? Yes * Has this patient been hospitalized within the prior 30 days at any hospital? Yes Last DP export: 09/29/19 1:12 pm Patient Name: MACO PERALES Page 52450 at 8874 All edits/amendments must be made on the electronic document DICTATION DATE: 09/29/19 5315 SUPERVISOR COAL HANDLING: DM 09/29/191455 RPT#: [id number] DC DATE: STATUS: ADM IN [facility] [address] [place] [address] END OF REPORT
--- NOTE | 2019-09-29 15:26 | NUR ---
DC HOME AT THIS TIME VOICE UNDERSTANDING OF DC INSTRUCTION. IS ALSO AWARE OF DC INSTRUCTION AND POC. IV DC. PT HAS ALL PERSONAL BELONGS UPON DC AND WAS IN STABLE CONDITION UPON DEPARTURE. C/L IN REACH AT BEDSIDE.
--- NOTE | 2019-09-29 15:39 | MORECARE ---
CASE MANAGEMENT DISCHARGE SUMMARY PATIENT: MACO PERALES UNIT: [id number] ADM DATE: 09/24/19 AGE: 54 : 63 SEX: M ROOM/BED: D.2216 AUTHOR: JENNIFER,DOC PHYSICIAN: REFERRING PHYSICIAN: AURORA SEVILLA MD DATE OF SERVICE: 09/29/19 Discharge Plan Patient Name: MACO PERALES Facility: [facility]:[place] : 1965 Planned Disposition: Home with Home Health Anticipated Discharge Date: Discharge Date: 09/29/2019 Expected LOS: Initial Reviewer: [email or web address] Initial Review Date: 09/24/2019 Generated: 09/29/19 4:38 pm Comments DCP- Discharge Planning Updated by [email or web address]: Anabell Manrique on 09/29/19 1:[address] MACKENZIE CALLED AND STATED THAT HE HAS MADE HIM AN APPOINTMENT WITH A DR BECK WHO IS A OCULOFACIAL PLASTIC SURGEON. HIS APPOINTMENT IS FOR FridaySeptember @ 12.:00. I CALLED AND VERIFIED THIS WITH HIS OFFICE AND WILL FAX CLINICALS TO THEM I HAVE ALSO REQUESTED A FACIAL CT TO BE PLACED ON A DISC TO TAKE WITH HIM. HE WILL BE GOING TO THE OFFICE [phone] DR MACKENZIE PERSONALLY CALLED HIS AVA AND SPOKE WITH HER AND GAVE ALL OF THE ABOVE INFORMATION DCP- Discharge Planning Updated by [email or web address]: Anabell Manrique on 09/29/19 1:[address] Patient Name: MACO PERALES Admission Status: ER Accout number: [id number] Admission Date: 09-24-2019 : 1965 Admission Diagnosis:PERIORBITAL CELLULITIS Attending: AURORA BYRNE Current LOS: 5 Anticipated DC Date: Planned Disposition: Home with Home Health Primary Insurance: [employer] [facility] Discharge Planning Comments: Patient lives at home with his spouse who is a SOUVENIR AND NOVELTY MAKER. Patient was just discharged from our hospital for the same thing. The initial discharge plan was to go home with home health and IV abx. This is a workman's comp case and I was awaiting to hear back from Makenna (workman's comp CM) to let me know where I can get abx set up, This morning the called very tearful about her that his WBC was rising being currently on IV ABX again and she is afraid if he is sent home that he will be right back. She is asking if we have ID. We do not have ID and the would like him transferred to a higher level of care and the services that he needs. We have stated this process and I have updated the on this. CM will continue to follow and will assist as needed with dc plans/needs. Wax Molder: Anabell Manrique DCP- Discharge Planning Updated by [id number]: Anabell Manrique on 09/29/19 12:[address] AVA PFEIFFER RN HAS STARTED THE TRANSFER PROCESS TO GET TO A HOSPITAL WITH ID DCP- Discharge Planning Updated by [email or web address]: Anabell Manrique on 09/29/19 7:[address] IS CONCERNED ABOUT HIS WBC INCREASING AND WOULD LIKE TO HAVE HIM TRANSFERED TO A PLACE WITH ID, PLASTICS AND OPTHALMOLOGY. WILL SPEAK WITH MD ABOUT REQUEST DCP- Discharge Planning Updated by [email or web address]: Anabell Manrique on 09/28/19 4:[address] SPOKE WITH MAKENNA WITH MUNA JC ABOUT IV ABX. CLINICALS FAXED TO HER AT [phone] DCPIA - Discharge Planning Initial Assessment Updated by [email or web address]: Anabell Manrique on 09/29/19 1:57 pm * Is the patient Alert and Oriented? Yes * PCP GORE SEAMER * Pharmacy [facility] [address] * Preadmission Environment Home with Family * ADLs Independent * Equipment None * List name and contact numbers for known caregivers / representatives who currently or will assist patient after discharge: AVA () [phone] * Verbal permission to speak to the caregivers and representatives has been obtained from the patient. Yes * Community resources currently utilized None * Additional services required to return to the preadmission environment? Yes * Can the patient safely return to the preadmission environment? Yes * Has this patient been hospitalized within the prior 30 days at any hospital? Yes External Providers External Provider: OTHER-OTHER Next Contact Date: Service Request Date: Service Type: Resolution: Reviewer: Comments: Last DP export: 09/29/19 1:57 pm Patient Name: MACO PERALES Page 76229 at 1539 All edits/amendments must be made on the electronic document DICTATION DATE: 09/29/191537 [place] CONSTABLE: SOTERO 09/29/198 RPT#: [id number] DC DATE:09/29/19 STATUS: DIS IN [facility] [address] [place] [address] END OF REPORT
--- NOTE | 2019-09-29 15:49 | MORECARE ---
CASE MANAGEMENT DISCHARGE SUMMARY PATIENT: MACO PERALES UNIT: [id number] ADM DATE: 09/24/19 AGE: 54 : 63 SEX: M ROOM/BED: D.2216 AUTHOR: JENNIFER,DOC PHYSICIAN: REFERRING PHYSICIAN: AURORA SEVILLA MD DATE OF SERVICE: 09/29/19 Discharge Plan Patient Name: MACO PERALES Facility: [facility]:[place] : 1965 Planned Disposition: Home with Home Health Anticipated Discharge Date: Discharge Date: 09/29/2019 Expected LOS: Initial Reviewer: [email or web address] Initial Review Date: 09/24/2019 Generated: 09/29/19 4:48 pm Comments DCP- Discharge Planning Updated by [email or web address]: Anabell Manrique on 09/29/19 1:[address] MACKENZIE CALLED AND STATED THAT HE HAS MADE HIM AN APPOINTMENT WITH A DR BECK WHO IS A OCULOFACIAL PLASTIC SURGEON. HIS APPOINTMENT IS FOR FridaySeptember @ 12.:00. I CALLED AND VERIFIED THIS WITH HIS OFFICE AND WILL FAX CLINICALS TO THEM I HAVE ALSO REQUESTED A FACIAL CT TO BE PLACED ON A DISC TO TAKE WITH HIM. HE WILL BE GOING TO THE OFFICE [phone] DR MACKENZIE PERSONALLY CALLED HIS AVA AND SPOKE WITH HER AND GAVE ALL OF THE ABOVE INFORMATION DCP- Discharge Planning Updated by [email or web address]: Anabell Manrique on 09/29/19 1:[address] Patient Name: MACO PERALES Admission Status: ER Accout number: [id number] Admission Date: 09-24-2019 : 1965 Admission Diagnosis:PERIORBITAL CELLULITIS Attending: AURORA BYRNE Current LOS: 5 Anticipated DC Date: Planned Disposition: Home with Home Health Primary Insurance: [employer] [facility] Discharge Planning Comments: Patient lives at home with his spouse who is a PARKING SUPERVISOR. Patient was just discharged from our hospital for the same thing. The initial discharge plan was to go home with home health and IV abx. This is a workman's comp case and I was awaiting to hear back from Makenna (workman's comp CM) to let me know where I can get abx set up, This morning the called very tearful about her that his WBC was rising being currently on IV ABX again and she is afraid if he is sent home that he will be right back. She is asking if we have ID. We do not have ID and the would like him transferred to a higher level of care and the services that he needs. We have stated this process and I have updated the on this. CM will continue to follow and will assist as needed with dc plans/needs. Full Stack Net Developer: Anabell Manrique DCP- Discharge Planning Updated by [email or web address]: Anabell Manrique on 09/29/19 12:[address] AVA PFEIFFER RN HAS STARTED THE TRANSFER PROCESS TO GET TO A HOSPITAL WITH ID DCP- Discharge Planning Updated by [email or web address]: Anabell Manrique on 09/29/19 7:[address] IS CONCERNED ABOUT HIS WBC INCREASING AND WOULD LIKE TO HAVE HIM TRANSFERED TO A PLACE WITH ID, PLASTICS AND OPTHALMOLOGY. WILL SPEAK WITH MD ABOUT REQUEST DCP- Discharge Planning Updated by [email or web address]: Anabell Manrique on 09/28/19 4:[address] SPOKE WITH MAKENNA WITH MUNA JC ABOUT IV ABX. CLINICALS FAXED TO HER AT [phone] DCPIA - Discharge Planning Initial Assessment Updated by [email or web address]: Anabell Manrique on 09/29/19 1:57 pm * Is the patient Alert and Oriented? Yes * PCP PRE PAROLE COUNSELING AIDE * Pharmacy [facility] [address] * Preadmission Environment Home with Family * ADLs Independent * Equipment None * List name and contact numbers for known caregivers / representatives who currently or will assist patient after discharge: AVA () [phone] * Verbal permission to speak to the caregivers and representatives has been obtained from the patient. Yes * Community resources currently utilized None * Additional services required to return to the preadmission environment? Yes * Can the patient safely return to the preadmission environment? Yes * Has this patient been hospitalized within the prior 30 days at any hospital? Yes Last DP export: 09/29/19 2:39 pm Patient Name: MACO PERALES Page 62800 at 1549 All edits/amendments must be made on the electronic document DICTATION DATE: 09/29/19 1548 ASE CERTIFIED TECHNICIAN: DM 09/29/19 1548 RPT#: [id number] DC DATE:09/29/19 STATUS: DIS IN [facility] [address] [facility] [place] [address] END OF REPORT
--- NOTE | 2019-09-29 23:57 | MORECARE ---
CASE MANAGEMENT DISCHARGE SUMMARY PATIENT: MACO PERALES UNIT: [id number] ADM DATE: 09/24/19 AGE: 54 : 63 SEX: M ROOM/BED: D.2216 AUTHOR: JENNIFER,DOC PHYSICIAN: REFERRING PHYSICIAN: AURORA SEVILLA MD DATE OF SERVICE: 09/29/19 Discharge Plan Patient Name: MACO PERALES Facility: [facility]:[place] : 1965 Planned Disposition: Home with Home Health Anticipated Discharge Date: Discharge Date: 09/29/2019 Expected LOS: Initial Reviewer: [email or web address] Initial Review Date: 09/24/2019 Generated: 09/30/19 12:56 am Comments DCP- Discharge Planning Updated by [email or web address]: Anabell Manrique on 09/29/19 1:[address] MACKENZIE CALLED AND STATED THAT HE HAS MADE HIM AN APPOINTMENT WITH A DR BECK WHO IS A OCULOFACIAL PLASTIC SURGEON. HIS APPOINTMENT IS FOR FridaySeptember @ 12.:00. I CALLED AND VERIFIED THIS WITH HIS OFFICE AND WILL FAX CLINICALS TO THEM I HAVE ALSO REQUESTED A FACIAL CT TO BE PLACED ON A DISC TO TAKE WITH HIM. HE WILL BE GOING TO THE OFFICE [phone] DR MACKENZIE PERSONALLY CALLED HIS AVA AND SPOKE WITH HER AND GAVE ALL OF THE ABOVE INFORMATION DCP- Discharge Planning Updated by [email or web address]: Anabell Manrique on 09/29/19 1:[address] Patient Name: MACO PERALES Admission Status: ER Accout number: [id number] Admission Date: 09-24-2019 : 1965 Admission Diagnosis:PERIORBITAL CELLULITIS Attending: AURORA BYRNE Current LOS: 5 Anticipated DC Date: Planned Disposition: Home with Home Health Primary Insurance: [employer] [facility] Discharge Planning Comments: Patient lives at home with his spouse who is a VACATION GUIDE. Patient was just discharged from our hospital for the same thing. The initial discharge plan was to go home with home health and IV abx. This is a workman's comp case and I was awaiting to hear back from Makenna (workman's comp CM) to let me know where I can get abx set up, This morning the called very tearful about her that his WBC was rising being currently on IV ABX again and she is afraid if he is sent home that he will be right back. She is asking if we have ID. We do not have ID and the would like him transferred to a higher level of care and the services that he needs. We have stated this process and I have updated the on this. CM will continue to follow and will assist as needed with dc plans/needs. Channel Sales Manager: Anabell Manrique DCP- Discharge Planning Updated by [email or web address]: Anabell Manrique on 09/29/19 12:[address] AVA PFEIFFER RN HAS STARTED THE TRANSFER PROCESS TO GET TO A HOSPITAL WITH ID DCP- Discharge Planning Updated by [email or web address]: Anabell Manrique on 09/29/19 7:[address] IS CONCERNED ABOUT HIS WBC INCREASING AND WOULD LIKE TO HAVE HIM TRANSFERED TO A PLACE WITH ID, PLASTICS AND OPTHALMOLOGY. WILL SPEAK WITH MD ABOUT REQUEST DCP- Discharge Planning Updated by [email or web address]: Anabell Manrique on 09/28/19 4:[address] SPOKE WITH MAKENNA WITH MUNA JC ABOUT IV ABX. CLINICALS FAXED TO HER AT [phone] DCPIA - Discharge Planning Initial Assessment Updated by [email or web address]: Anabell Manrique on 09/29/19 1:57 pm * Is the patient Alert and Oriented? Yes * PCP COMMISSION BROKER * Pharmacy [facility] [address] * Preadmission Environment Home with Family * ADLs Independent * Equipment None * List name and contact numbers for known caregivers / representatives who currently or will assist patient after discharge: AVA () [phone] * Verbal permission to speak to the caregivers and representatives has been obtained from the patient. Yes * Community resources currently utilized None * Additional services required to return to the preadmission environment? Yes * Can the patient safely return to the preadmission environment? Yes * Has this patient been hospitalized within the prior 30 days at any hospital? Yes Last DP export: 09/29/19 2:49 pm Patient Name: MACO PERALES Page 39537 at 5156 All edits/amendments must be made on the electronic document DICTATION DATE: 09/29/192355 COMMERCIAL DRAFTER: DM 09/29/192355 RPT#: [id number] DC DATE:09/29/19 STATUS: DIS IN [facility] [address] [place] [address] END OF REPORT
== END 2019-09-29 15:35 | disposition home health service (06) | DRG 603 ==
LOC: D.ER 22:17 → D.MS 09-24 00:11
PROVIDERS: Family Medicine; ADMIT Family Medicine Adult Medicine; ATTEND Family Medicine Adult Medicine
DX: L03.213 Periorbital cellulitis (principal); H46.9 Unspecified optic neuritis; E44.0 Moderate protein-calorie malnutrition; I10 Essential (primary) hypertension; G47.33 Obstructive sleep apnea (adult) (pediatric); Z68.36 Body mass index [BMI] 36.0-36.9, adult